=== PATIENT | female | born 1950 | race Hispanic/Latino ===

== ENCOUNTER 2018-12-02 08:24 | Outpatient (CLI) | payer MEDICARE ==
--- NOTE | 2018-12-11 11:57 | MMO ---
Bilateral MAMMO Bilat Screen [facility]. CLINICAL HISTORY: Patient is 68 years old and is seen for screening. The patient has no family history of breast cancer. The patient has no personal history of cancer. VIEWS: The views performed were: bilateral craniocaudal with tomosynthesis and bilateral mediolateral oblique with tomosynthesis. FILMS COMPARED: The present examination has been compared to prior imaging studies performed at [facility] on 11/10/2015, 11/13/2016 and 11/14/2017. MAMMOGRAM FINDINGS: The breasts are heterogeneously dense, which could obscure a lesion on mammography. Finding 1: There are vascular calcifications seen in both breasts. Finding 2: There are benign appearing calcifications seen in both breasts. There are no suspicious masses, suspicious calcifications, or new areas of architectural distortion. IMPRESSION: THERE IS NO MAMMOGRAPHIC EVIDENCE OF MALIGNANCY. A ROUTINE FOLLOW-UP MAMMOGRAM IN 1 YEAR IS RECOMMENDED. THE RESULTS OF THIS EXAM WERE SENT TO THE PATIENT. ACR BI-RADS Category 2 - Benign finding MAMMOGRAPHY NOTE: 1. A negative mammogram report should not delay a biopsy if a dominant of clinically suspicious mass is present. 2. Approximately 10% to 15% of breast cancers are not detected by mammography. 3. Adenosis and dense breasts may obscure an underlying neoplasm. Reported by: MANUEL DELEON MD Electonically Signed: [id number]
== END 2018-12-02 08:25 | disposition home or self-care (01) ==
LOC: BICMAMMO 08:24
PROVIDERS: ATTEND Family Medicine
DX: Z12.31 Encounter for screening mammogram for malignant neoplasm of breast (principal)
CPT/HCPCS: 77063; 77067

== ENCOUNTER 2019-03-24 12:17 | Outpatient (CLI) | payer MEDICARE ==
--- NOTE | 2019-03-24 14:58 | CT ---
CT PULMONARY LUNG SCAN: HISTORY: Patient a smoker for 45 years, two packs a day, currently does not smoke. FINDINGS: There is a small area of ground glass nodularity seen in the apical posterior segment of the left upp er lobe, measuring in the 5 to 6 mm range. There is a second small pleural-based area of ground glass opacity, more ill defined. It is along the border of the aortic arch. It is difficult to measure but measures in the 5 mm range in short axis dimension. There is an approximately 10 mm left upper lobe pulmonary nodule, the borders of which are slightly lobulated, with some minimally spiculated. This i s suspicious. There is reticular scarring in both lung bases. There is a faint area of ground glass nodularity seen within the right middle lobe, measuring in the 11 mm range. There is some ill defined ground glass n odularity seen in the right lower lobe. There is not a distinct area of nodularity. The visualized liver parenchyma shows no focal finding. There is a right adrenal mass, measuring 2.6 cm. It is indeterminate. IMPRESSION: 1. Lung-RADS category 4 - suspicious. Further evaluation required. In this case I would recommend a P ET scan for evaluation of left upper lobe pulmonary nodule. 2. Lung-RADS category S - this is given for the presence of an indeterminate 2.6 cm right adrenal nod ule. 3. These findings were telephoned to Dr. Victor's office, message left with Nancy, who will contac t Dr. Victor concerning these findings. CODE CR POS: [facility]
== END 2019-03-24 12:18 | disposition home or self-care (01) ==
LOC: CT 12:17
PROVIDERS: ATTEND Family Medicine
DX: Z87.891 Personal history of nicotine dependence (principal); R91.8 Other nonspecific abnormal finding of lung field; E27.8 Other specified disorders of adrenal gland
CPT/HCPCS: G0297

== ENCOUNTER 2019-04-09 10:38 | Outpatient (CLI) | payer MEDICARE ==
--- NOTE | 2019-04-09 14:10 | PET ---
PET CT: HISTORY: A 68-year-old female with a lung nodule. TECHNIQUE: PET scan with CT attenuation correction was performed from the base of the brain through the proximal thighs following the intravenous administration of 10 millicuries of F18 fluorodeoxyglucose in the r ight antecubital fossa. FINDINGS: No maynor hypermetabolism is seen in the neck, chest, axillae, abdomen or pelvis. No hypermetabolic pu lmonary nodules or liver, adrenal or skeletal lesions are seen. The left lung nodules noted on the low dose CT scan of 03/24/2019 demonstrate no abnormal fluorodeoxy glucose localization. The 2.8 cm right adrenal nodule noted on the CT scan used for attenuation correction demonstrates mil dly increased fluorodeoxyglucose localization, which is less than the uptake in the liver, with an ad renal to liver SUV ratio of less than 1. This does not meet criteria for malignancy/metastatic diseas e. There is physiologic activity in the gastrointestinal and genitourinary tracts and in the visualized portions of the brain. The CT scan used for attenuation correction demonstrates no evidence of pleural effusions or ascites. There are tiny nonobstructing calculi in the kidneys. There is sigmoid diverticulosis. IMPRESSION: No evidence of malignancy/metastatic disease. POS: [facility]
== END 2019-04-09 10:39 | disposition home or self-care (01) ==
LOC: PET 10:38
PROVIDERS: ATTEND Family Medicine
DX: R91.1 Solitary pulmonary nodule (principal)
CPT/HCPCS: 78815; A9552

== ENCOUNTER 2019-10-06 10:29 | Outpatient (CLI) | payer MEDICARE ==
--- NOTE | 2019-10-06 11:12 | RAD ---
EXAM: XR Thoracic Spine 3 V STANDARD PROVIDED CLINICAL HISTORY: Dorsalgia. COMPARISON: None FINDINGS: Scattered osteophytes are seen in the thoracic spine. The vertebral body heights and intervertebral d isc spaces are within normal limits. No fracture or subluxation is seen involving the thoracic spine. Vascular calcifications are seen in the thoracic aorta. Vascular calcifications overlie the me dial left upper quadrant. IMPRESSION: Mild degenerative changes in the thoracic spine.
== END 2019-10-06 10:30 | disposition home or self-care (01) ==
LOC: BICRAD 10:29
PROVIDERS: ATTEND Family Medicine
DX: M54.9 Dorsalgia, unspecified (principal); E55.9 Vitamin D deficiency, unspecified; E11.9 Type 2 diabetes mellitus without complications; M47.814 Spondylosis without myelopathy or radiculopathy, thoracic region
CPT/HCPCS: 36415; 72072; 80053; 80061; 82306; 83036

== ENCOUNTER 2019-12-08 13:37 | Outpatient (CLI) | payer MEDICARE ==
--- NOTE | 2019-12-08 14:22 | MMO ---
Bilateral MAMMO Bilat Screen [facility]. CLINICAL HISTORY: Patient is 69 years old and is seen for screening. The patient has no family history of breast cancer. The patient has no personal history of cancer. VIEWS: The views performed were: bilateral craniocaudal with tomosynthesis and bilateral mediolateral oblique with tomosynthesis. FILMS COMPARED: The present examination has been compared to prior imaging studies performed at [facility] on 12/02/2018, and at [facility] on 11/10/2015, 11/13/2016 and 11/14/2017. This study has been interpreted with the assistance of computer-aided detection. MAMMOGRAM FINDINGS: The breasts are heterogeneously dense, which could obscure a lesion on mammography. There are stable benign appearing calcifications seen in both breasts. There are no suspicious masses, suspicious calcifications, or new areas of architectural distortion. IMPRESSION: THERE IS NO MAMMOGRAPHIC EVIDENCE OF MALIGNANCY. A ROUTINE FOLLOW-UP MAMMOGRAM IN 1 YEAR IS RECOMMENDED. THE RESULTS OF THIS EXAM WERE SENT TO THE PATIENT. ACR BI-RADS Category 2 - Benign finding MAMMOGRAPHY NOTE: 1. A negative mammogram report should not delay a biopsy if a dominant of clinically suspicious mass is present. 2. Approximately 10% to 15% of breast cancers are not detected by mammography. 3. Adenosis and dense breasts may obscure an underlying neoplasm. Reported by: DIONICIO MARTÍNEZ MD Electonically Signed: [id number]
== END 2019-12-08 13:38 | disposition home or self-care (01) ==
LOC: BICMAMMO 13:37
PROVIDERS: ATTEND Family Medicine
DX: Z12.31 Encounter for screening mammogram for malignant neoplasm of breast (principal)
CPT/HCPCS: 77063; 77067

== ENCOUNTER 2020-01-26 11:10 | Outpatient (CLI) | payer MEDICARE | END 2020-01-26 11:11 | disposition home or self-care (01) | LOC: DTY/OP 11:10 | PROVIDERS: ATTEND Internal Medicine Cardiovascular Disease | DX: I73.9 Peripheral vascular disease, unspecified (principal); E78.2 Mixed hyperlipidemia; E11.9 Type 2 diabetes mellitus without complications | CPT/HCPCS: 97802 ==

== ENCOUNTER 2020-09-09 12:42 | Outpatient (CLI) | payer MEDICARE | END 2020-09-09 12:43 | disposition home or self-care (01) | LOC: BICCT 12:42 | PROVIDERS: ATTEND Family Medicine | DX: Z12.2 Encounter for screening for malignant neoplasm of respiratory organs (principal); Z87.891 Personal history of nicotine dependence; R91.1 Solitary pulmonary nodule | CPT/HCPCS: 71271 ==

== ENCOUNTER 2023-03-19 11:00 | Inpatient (IN) | payer OTHER ==
[2023-03-19 12:07] VITALS: BMI 30.7
[2023-03-26] MEDS ORDERED: Midazolam HCl 2 mg/2 ml Vial ONE (06:30)
[2023-03-26] MEDS ORDERED: fentaNYL 50 mcg/mL 1 mL Vial ONE ×3 (06:30→10:48)
[2023-03-26] MEDS ORDERED: Bupivacaine PF 0.5% 30 ML VIAL ONE (06:31)
[2023-03-26] MEDS ORDERED: cefOXitin 2 GM VIAL ONE ×2 (06:51→09:39)
[2023-03-26] MEDS ORDERED: Sodium Chloride 0.9% 100 ML ONE ×2 (06:52→09:00)
[2023-03-26] MEDS ORDERED: PROPOFOL 20 ML ONE (07:01)
[2023-03-26] MEDS ORDERED: Dexamethasone 20 MG/5 ML VIAL ONE ×2 (07:01→07:40)
[2023-03-26] MEDS ORDERED: Lidocaine 1% PF 5 ML VIAL ONE ×2 (07:01→07:40)
[2023-03-26] MEDS ORDERED: Rocuronium Bromide 10 MG/ML (10ML VIAL) ONE ×2 (07:01→07:40)
[2023-03-26] MEDS ORDERED: Ondansetron PF 4 MG/2 ML Vial ONE ×2 (07:01→07:40)
[2023-03-26] MEDS ORDERED: fentaNYL PF 100 MCG/2 ML SYRINGE ONE (07:01)
[2023-03-26] MEDS ORDERED: ePHEDrine Sulfate 50 MG/10 ML VIAL ONE ×2 (07:36→07:40)
[2023-03-26] MEDS ORDERED: NEOSTIGMINE 3 MG/3 ML SYR 3 MG/3 ML SYRINGE ONE ×2 (07:40→09:55)
[2023-03-26] MEDS ORDERED: PROPOFOL 200 MG/20 ML VIAL ONE (07:40)
[2023-03-26] MEDS ORDERED: Albuterol HFA (OR) 200 PUFF INH ONE (07:40)
[2023-03-26] MEDS ORDERED: PHENYLEPHRINE-NS 100 MCG/ML 10 ML SYRINGE ONE (07:40)
[2023-03-26] MEDS ORDERED: Glycopyrrolate 0.2 MG/ML 5 ML SYRINGE ONE ×2 (07:40→07:59)
[2023-03-26] MEDS ORDERED: Dexamethasone 4 mg/ml Vial ONE (07:52)
[2023-03-26] MEDS ORDERED: Ketamine In 0.9 % NaCl 50 MG/5 ML SYRINGE ONE (08:08)
[2023-03-26] MEDS ORDERED: Phenylephrine 40 MG/NS 250 ML 250 ML ONE (09:00)
[2023-03-26] MEDS ORDERED: Ondansetron HCl/PF 4 MG/2 ML Vial IVP PRN (09:39)
[2023-03-26] MEDS ORDERED: FENTANYL 500 MCG/10 ML VIAL 2,000 MCG in Sodium Chloride 0.9% 60 ML IV PRN (09:39)
[2023-03-26] MEDS ORDERED: Ondansetron PF 4 MG/2 ML Vial IVP PRN (09:39)
[2023-03-26] MEDS ORDERED: diphenhydrAMINE 25 MG CAP PO PRN (09:39)
[2023-03-26] MEDS ORDERED: diphenhydrAMINE 50 MG/ML VIAL IM PRN (09:39)
[2023-03-26] MEDS ORDERED: diphenhydrAMINE 50 MG/ML VIAL IVP PRN (09:39)
[2023-03-26] MEDS ORDERED: Naloxone HCl 0.4 mg/ml Vial IV PRN (09:39)
[2023-03-26] MEDS ORDERED: Promethazine HCl 25 MG/ML VIAL IM PRN ×3 (09:39→10:49)
[2023-03-26] MEDS ORDERED: Communication Order-Pharmacy FS SCH (09:45)
[2023-03-26] MEDS ORDERED: hydrALAZINE 20 MG/ML VIAL SLOW IVP PRN (10:49)
[2023-03-26] MEDS ORDERED: Ipratropium/Albuterol 3 ML NEB NEB PRN (10:49)
[2023-03-26] MEDS ORDERED: HumaLOG 300 UNITS/3 ML VIAL ONE (10:53)
[2023-03-26] MEDS: Acetaminophen 325 MG TAB PO SCH ×3 (13:21→22:44)
[2023-03-26] MEDS: HumaLOG 300 UNITS/3 ML VIAL SC PRN ×2 (13:23→18:16)
[2023-03-26] MEDS: Sodium Chloride 0.9% 1,000 ML IV SCH ×3 (13:30→22:46)
[2023-03-26] MEDS: Ondansetron PF 4 MG/2 ML Vial IVP PRN (17:36)
[2023-03-26] MEDS: Montelukast Sodium 10 mg Tablet PO SCH (22:44)
[2023-03-26] MEDS: traZODone HCl 150 MG TAB PO SCH (22:45)
[2023-03-26] MEDS: Famotidine 20 MG TAB PO SCH (22:45)
[2023-03-26] MEDS: Famotidine/PF 20 mg/2ml Vial SLOW IVP SCH (22:46)
[2023-03-27 05:31] LABS: #Monocytes 0.9 thou/uL (0.11-0.59); #Neutrophils 6.5 thou/uL (1.40-6.50); %Basophils 0.2 % (0.0-1.0); %Lymphocytes 20.6 % (21.0-51.0); %Monocytes 9.2 % (0.0-10.0); %Neutrophils 69.8 % (42.0-75.0); Hematocrit 28.6 % (36.0-47.0); Hemoglobin 9.6 g/dL (12.0-16.0); Mean Corpuscular HGB CONC 33.6 g/dL (32.0-36.0); Mean Corpuscular Hemoglobin 31.6 pg (27.0-31.0); Mean Corpuscular Volume 94.1 fl (78.0-98.0); Mean Platelet Volume 9.8 fL (7.4-10.4); Platelet Count 180 10x3/uL (130-400); RBC Distribution Width 12.1 % (11.5-14.5); Red Blood Cell (RBC) Count 3.04 mill/uL (4.20-5.40); White Blood Cell (WBC) Count 9.4 10x3/uL (4.8-10.8)
[2023-03-27] MEDS: Acetaminophen 325 MG TAB PO SCH ×4 (06:49→23:42)
[2023-03-27 08:37] LABS: Anion Gap 10 mmol/L (10-20); BUN (Urea Nitrogen) 13 mg/dL (9.8-20.1); Calc. Creatinine Clearance 78 mL/min (70-130); Calcium 8.4 mg/dL (7.8-10.44); Carbon Dioxide 24 mmol/L (23-31); Chloride 108 mmol/L (98-107); Estimated GFR 79; Glucose 183 mg/dL (83-110); Potassium 4.1 mmol/L (3.5-5.1); Sodium 138 mmol/L (136-145)
[2023-03-27] MEDS: Amlodipine 5 MG TAB PO SCH (08:56)
[2023-03-27] MEDS: Losartan 25 MG TAB PO SCH (08:58)
[2023-03-27] MEDS: Famotidine/PF 20 mg/2ml Vial SLOW IVP SCH ×2 (08:58→20:46)
[2023-03-27] MEDS: Famotidine 20 MG TAB PO SCH ×2 (08:58→20:46)
[2023-03-27] MEDS: Sodium Chloride 0.9% 1,000 ML IV SCH ×2 (10:23→17:23)
[2023-03-27] MEDS: HumaLOG 300 UNITS/3 ML VIAL SC PRN ×2 (13:21→17:23)
[2023-03-27] MEDS: traZODone HCl 150 MG TAB PO SCH (20:46)
[2023-03-27] MEDS: Montelukast Sodium 10 mg Tablet PO SCH (20:46)
[2023-03-28 04:53] LABS: #Monocytes 0.8 thou/uL (0.11-0.59); #Neutrophils 8.4 thou/uL (1.40-6.50); %Basophils 0.4 % (0.0-1.0); %Lymphocytes 18.2 % (21.0-51.0); Hematocrit 27.5 % (36.0-47.0); Hemoglobin 9.2 g/dL (12.0-16.0); Mean Corpuscular HGB CONC 33.5 g/dL (32.0-36.0); Mean Corpuscular Hemoglobin 31.6 pg (27.0-31.0); Mean Corpuscular Volume 94.5 fl (78.0-98.0); Mean Platelet Volume 10.1 fL (7.4-10.4); Platelet Count 176 10x3/uL (130-400); RBC Distribution Width 12.1 % (11.5-14.5); Red Blood Cell (RBC) Count 2.91 mill/uL (4.20-5.40); White Blood Cell (WBC) Count 11.4 10x3/uL (4.8-10.8)
[2023-03-28 05:14] LABS: Anion Gap 9 mmol/L (10-20); BUN (Urea Nitrogen) 13 mg/dL (9.8-20.1); Calc. Creatinine Clearance 86 mL/min (70-130); Calcium 8.6 mg/dL (7.8-10.44); Carbon Dioxide 23 mmol/L (23-31); Chloride 109 mmol/L (98-107); Estimated GFR 89; Glucose 188 mg/dL (83-110); Sodium 137 mmol/L (136-145)
[2023-03-28] MEDS: Acetaminophen 325 MG TAB PO SCH ×3 (05:50→17:28)
[2023-03-28] MEDS: HumaLOG 300 UNITS/3 ML VIAL SC PRN ×3 (05:51→17:34)
[2023-03-28] MEDS: Ondansetron PF 4 MG/2 ML Vial IVP PRN ×4 (06:10→22:19)
[2023-03-28] MEDS ORDERED: traMADol HCl 50 MG TAB PO PRN ×2 (09:19)
[2023-03-28] MEDS ORDERED: fentaNYL 50 mcg/mL 1 mL Vial SLOW IVP PRN (09:36)
[2023-03-28] MEDS ORDERED: ACTIVE PCA FS PRN (09:45)
[2023-03-28] MEDS: Famotidine 20 MG TAB PO SCH ×2 (10:30→21:24)
[2023-03-28] MEDS: Amlodipine 5 MG TAB PO SCH (10:31)
[2023-03-28] MEDS: Losartan 25 MG TAB PO SCH (10:31)
[2023-03-28] MEDS: Famotidine/PF 20 mg/2ml Vial SLOW IVP SCH ×2 (10:32→21:24)
[2023-03-28] MEDS: traMADol HCl 50 MG TAB PO PRN ×2 (11:44→17:29)
[2023-03-28] MEDS: Sodium Chloride 0.9% 1,000 ML IV SCH (11:44)
[2023-03-28] MEDS: traZODone HCl 150 MG TAB PO SCH (21:24)
[2023-03-28] MEDS: Montelukast Sodium 10 mg Tablet PO SCH (21:24)
[2023-03-28] MEDS: Cyclobenzaprine 10 MG TAB PO PRN (21:34)
[2023-03-29] MEDS: Acetaminophen 325 MG TAB PO SCH ×5 (00:21→22:47)
[2023-03-29] MEDS: Sodium Chloride 0.9% 1,000 ML IV SCH ×2 (06:53→16:00)
[2023-03-29] MEDS: Amlodipine 5 MG TAB PO SCH (09:41)
[2023-03-29] MEDS: Famotidine 20 MG TAB PO SCH ×2 (09:41→22:44)
[2023-03-29] MEDS: Losartan 25 MG TAB PO SCH (09:42)
[2023-03-29] MEDS: Diphenoxylate HCl/Atropine Tablet PO SCH ×3 (09:42→22:44)
[2023-03-29] MEDS: Famotidine/PF 20 mg/2ml Vial SLOW IVP SCH ×2 (09:46→22:48)
[2023-03-29] MEDS: HumaLOG 300 UNITS/3 ML VIAL SC PRN (18:23)
[2023-03-29] MEDS: Montelukast Sodium 10 mg Tablet PO SCH (22:44)
[2023-03-29] MEDS: traZODone HCl 150 MG TAB PO SCH (22:44)
[2023-03-29] MEDS: Cyclobenzaprine 10 MG TAB PO PRN (22:47)
[2023-03-30] MEDS ORDERED: Acetaminophen 325 MG TAB PO PRN (03:19)
[2023-03-30] MEDS ORDERED: HumaLOG 300 UNITS/3 ML VIAL SC PRN (03:30)
[2023-03-30] MEDS: Sodium Chloride 0.9% 1,000 ML IV SCH (03:54)
[2023-03-30 07:37] LABS: #Eosinphils 0.1 thou/uL (0.0-0.7); #Monocytes 0.7 thou/uL (0.11-0.59); #Neutrophils 6.4 thou/uL (1.40-6.50); %Basophils 0.2 % (0.0-1.0); %Eosinophils 0.7 % (0.0-10.0); %Lymphocytes 20.7 % (21.0-51.0); %Monocytes 7.9 % (0.0-10.0); %Neutrophils 70.3 % (42.0-75.0); Hemoglobin 9.5 g/dL (12.0-16.0); Mean Corpuscular HGB CONC 33.9 g/dL (32.0-36.0); Mean Corpuscular Hemoglobin 31.5 pg (27.0-31.0); Mean Corpuscular Volume 92.7 fl (78.0-98.0); Mean Platelet Volume 9.8 fL (7.4-10.4); Platelet Count 211 10x3/uL (130-400); Red Blood Cell (RBC) Count 3.02 mill/uL (4.20-5.40); White Blood Cell (WBC) Count 9.1 10x3/uL (4.8-10.8)
[2023-03-30] MEDS: Amlodipine 5 MG TAB PO SCH (08:39)
[2023-03-30] MEDS: Famotidine 20 MG TAB PO SCH (08:39)
[2023-03-30] MEDS: Losartan 25 MG TAB PO SCH (08:39)
[2023-03-30] MEDS: Diphenoxylate HCl/Atropine Tablet PO SCH (08:39)
[2023-03-30] MEDS: traMADol HCl 50 MG TAB PO PRN (08:39)
[2023-03-30] MEDS: Famotidine/PF 20 mg/2ml Vial SLOW IVP SCH (08:43)
[2023-03-30 11:27] VITALS: BP 149/49; TEMP 98.5
== END 2023-03-30 14:30 | disposition home or self-care (01) | DRG 331 ==
LOC: SURG A 03-26 06:00 → SURG B 03-26 12:23
PROVIDERS: ADMIT Surgery; ATTEND Surgery
PROC: 0DTN0ZZ Resection of Sigmoid Colon, Open Approach (ICD-10-PCS; principal; 2023-03-26)
PROC: 0DJD4ZZ Inspection of Lower Intestinal Tract, Percutaneous Endoscopic Approach (ICD-10-PCS; 2023-03-26)
PROC: 0D1B0Z4 Bypass Ileum to Cutaneous, Open Approach (ICD-10-PCS; 2023-03-26)
DX: C18.7 Malignant neoplasm of sigmoid colon (principal); I10 Essential (primary) hypertension; I73.9 Peripheral vascular disease, unspecified; M17.10 Unilateral primary osteoarthritis, unspecified knee; E78.2 Mixed hyperlipidemia; E11.9 Type 2 diabetes mellitus without complications; Z87.891 Personal history of nicotine dependence; I65.23 Occlusion and stenosis of bilateral carotid arteries; R91.1 Solitary pulmonary nodule; Z88.8 Allergy status to other drugs, medicaments and biological substances; Z88.0 Allergy status to penicillin; Z88.5 Allergy status to narcotic agent; Z79.899 Other long term (current) drug therapy; F32.A Depression, unspecified; Z98.890 Other specified postprocedural states
CPT/HCPCS: 36415; 36416; 80048; 85025; 88305; 88309; 97139; C1713; C1776; C1889; J0360; J0694; J1100; J1650; J1815; J2250; J2405; J2704; J3010; J3490; J7050; S0020; S0028

== ENCOUNTER 2023-03-19 11:08 | Outpatient (CLI) | payer OTHER ==
[2023-03-19 13:28] LABS: #Basophils 0.1 10x3/uL (0.0-0.2); #Eosinphils 0.1 10x3/uL (0.0-0.5); #Monocytes 0.4 10x3/uL (0.0-1.1); %Basophils 0.9 % (0.0-2.0); %Eosinophils 1.1 % (0.0-6.0); %Lymphocytes 29.4 % (18.0-47.0); %Monocytes 6.4 % (0.0-10.0); %Neutrophils 61.9 % (40.0-75.0); Hematocrit 35.5 % (34.9-44.5); Hemoglobin 12.3 g/dL (12.0-15.5); Mean Corpuscular HGB CONC 34.6 g/dL (32.0-36.0); Mean Corpuscular Hemoglobin 32.1 pg (27.0-33.0); Mean Corpuscular Volume 92.7 fl (81.6-98.3); Mean Platelet Volume 10.6 fl (7.4-10.4); Platelet Count 225 10x3/uL (150-450); RBC Distribution Width 11.9 % (11.5-14.5); Red Blood Cell (RBC) Count 3.83 10x6/uL (3.90-5.03); White Blood Cell (WBC) Count 6.4 10x3/uL (3.5-10.5)
[2023-03-19 13:45] LABS: Anion Gap 14 mmol/L (10-20); BUN (Urea Nitrogen) 20 mg/dL (9.8-20.1); Calc. Creatinine Clearance 0 mL/min (70-130); Calcium 9.5 mg/dL (7.8-10.44); Carbon Dioxide 22 mmol/L (23-31); Chloride 107 mmol/L (98-107); Estimated GFR 64; Glucose 244 mg/dL (83-110); Potassium 4.3 mmol/L (3.5-5.1); Sodium 139 mmol/L (136-145)
[2023-03-19 13:50] LABS: ALT (SGPT) 30 U/L (8-55); AST (SGOT) 31 U/L (5-34); Alkaline Phosphatase 73 U/L (40-110); Bilirubin, Direct 0.1 mg/dL (0.1-0.3); Bilirubin, Total 0.5 mg/dL (0.2-1.2); Protein, Total 7.5 g/dL (5.8-8.1)
[2023-03-19 13:52] LABS: PTT 23.2 sec (22.0-33.0); Prothrombin Time 10.6 sec (9.5-12.1)
[2023-03-19 17:10] LABS: Hemoglobin A1c 7.5 % (4.0-6.0)
== END 2023-03-19 11:09 | disposition home or self-care (01) ==
LOC: LABBT 11:08
PROVIDERS: ATTEND Surgery
DX: Z01.818 Encounter for other preprocedural examination (principal); K63.89 Other specified diseases of intestine
CPT/HCPCS: 80048; 80076; 83036; 85025; 85610; 85730; 93005; 93010

== ENCOUNTER 2023-04-08 10:46 | Inpatient (IN) | payer OTHER ==
[2023-04-08] MEDS ORDERED: Morphine 2 MG/ML VIAL SLOW IVP PRN (11:16)
[2023-04-08] MEDS ORDERED: Lorazepam 2 MG/ML VIAL SLOW IVP PRN (11:16)
[2023-04-08] MEDS ORDERED: Acetaminophen 650 MG Suppository PR PRN (11:18)
[2023-04-08] MEDS ORDERED: Morphine 2 MG/ML VIAL SLOW IVP SCH (12:00)
[2023-04-08] MEDS ORDERED: Scopolamine 1 mg/72 hour Patch TOP SCH (12:00)
== END 2023-04-08 15:51 | disposition expired | DRG 951 ==
LOC: 2NO 10:46
PROVIDERS: ADMIT Family Medicine; ATTEND Family Medicine
DX: Z51.5 Encounter for palliative care (principal); C18.7 Malignant neoplasm of sigmoid colon; E86.0 Dehydration; E11.9 Type 2 diabetes mellitus without complications; I10 Essential (primary) hypertension; R62.7 Adult failure to thrive; E78.5 Hyperlipidemia, unspecified; E11.51 Type 2 diabetes mellitus with diabetic peripheral angiopathy without gangrene; I25.10 Atherosclerotic heart disease of native coronary artery without angina pectoris; F32.A Depression, unspecified; Z98.890 Other specified postprocedural states; Z90.49 Acquired absence of other specified parts of digestive tract; Z79.4 Long term (current) use of insulin; Z88.8 Allergy status to other drugs, medicaments and biological substances; Z88.0 Allergy status to penicillin; Z91.040 Latex allergy status; Z93.2 Ileostomy status
CPT/HCPCS: J2272